=== PATIENT | female | born 1960 | race Two or more races ===

== ENCOUNTER 2022-05-27 20:24 | Emergency (ER) | payer OTHER ==
[~2022-05-27] VITALS: Ht 154.9 cm; Wt 80.0 kg
[2022-05-27 20:57] LABS: Urine WBC None Seen /hpf (0 - 5)
[2022-05-27 21:08] LABS: Urine Bacteria NONE SEEN /hpf (None Seen); Urine Blood Negative /uL (Negative); Urine Specific Gravity 1.004 (1.001-1.035)
[2022-05-28 01:10] VITALS: BP 124/82
== END 2022-05-28 08:31 | disposition left against medical advice (07) ==
LOC: ER 20:24 → EDBD 20:24 → ER 05-28 08:31
DX: R53.1 Weakness (principal); F41.9 Anxiety disorder, unspecified; Z53.21 Procedure and treatment not carried out due to patient leaving prior to being seen by health care provider
CPT/HCPCS: 81001